=== PATIENT | male | born 1985 | race Native Hawaiian/Other Pacific Islander ===

== ENCOUNTER 2019-04-23 14:56 | Emergency (ER) | payer MEDICAID ==
[~2019-04-23] VITALS: Ht 180.3 cm; Wt 116.6 kg
[2019-04-23 14:58] VITALS: BP 138/86; Ht 180.3 cm; Wt 116.6 kg
== END 2019-04-23 16:10 | disposition left against medical advice (07) ==
LOC: ED 14:56
DX: Z53.21 Procedure and treatment not carried out due to patient leaving prior to being seen by health care provider (principal)